=== PATIENT | female | born 2000 | race Caucasian/White ===

== ENCOUNTER 2023-05-09 06:28 | Emergency (ER) | payer BC ==
[2023-05-09 06:36] VITALS: BP 114/74; PULSE 75; RESP 16; TEMP 97.8; BMI 23.3
[2023-05-09] MEDS ORDERED: AZITHROMYCIN 250 MG TABLET PO ONE (06:49)
[2023-05-09] MEDS ORDERED: AZITHROMYCIN 500 MG TABLET ONE (06:50)
== END 2023-05-09 07:03 | disposition home or self-care (01) ==
LOC: FER 06:28
DX: R07.0 Pain in throat (principal); H92.01 Otalgia, right ear; R50.9 Fever, unspecified; R51.9 Headache, unspecified; H66.91 Otitis media, unspecified, right ear; J01.90 Acute sinusitis, unspecified
CPT/HCPCS: 99283-25

== ENCOUNTER 2024-06-23 21:49 | Emergency (ER) | payer BC ==
[2024-06-23 22:01] VITALS: BP 124/82; PULSE 86; RESP 16; TEMP 98.6; BMI 23.1
[2024-06-23 22:37] LABS: HEMATOCRIT 41.3 % (32.4-45.2); HEMOGLOBIN 13.7 G/dL (10.7-15.3); MCH 31.3 pg (25.7-33.7); MCHC 33.1 g/dl (32.0-36.0); MEAN CELL VOLUME 94.6 fl (80-96); MEAN PLT VOLUME 9.6 fl (7.5-11.1); PLATELET COUNT 261.5 10^3/uL (134-434); RBC 4.37 10^6/uL (3.60-5.2); RDW 13.4 % (11.6-15.6)
[2024-06-24 01:25] LABS: HIV INTERPRETATION NEGATIVE (NEGATIVE)
== END 2024-06-23 22:47 | disposition home or self-care (01) ==
LOC: FER 21:49
DX: K92.1 Melena (principal)
CPT/HCPCS: 36415; 82272; 85027; 86803; 87389; 99283-25